=== PATIENT | male | born 1960 | race Caucasian/White ===

== ENCOUNTER 2018-09-23 18:24 | Emergency (ER) | payer OTHER ==
[2018-09-23] MEDS: IBUPROFEN 800 MG TAB PO (22:44)
== END 2018-09-23 23:19 | disposition home or self-care (01) ==
LOC: FTE 18:24
DX: S80.01XA Contusion of right knee, initial encounter (principal); W01.198A Fall on same level from slipping, tripping and stumbling with subsequent striking against other object, initial encounter; Y92.89 Other specified places as the place of occurrence of the external cause
CPT/HCPCS: 73562; 99283-25